=== PATIENT | male | born 1960 | race Caucasian/White ===

== ENCOUNTER → 2021-12-29 | Outpatient (CLI) | payer BC ==
--- NOTE | 2021-12-29 17:08 | KCIC ---
EXAM: Cervical spine, 4 views. HISTORY: Pain. COMPARISON: None. FINDINGS: 4 views of cervical spine are obtained. There are bulky bridging and partially bridging ant erior osteophytes at the upper and mid cervical levels. There is multilevel endplate remodeling. Ther e is no fracture. There is disc space narrowing at C6-C7. There is multilevel facet arthropathy. IMPRESSION: Multilevel degenerative change, described above. There may be a superimposed component of diffuse idiopathic skeletal hyperostosis. Electronically signed by: Marilu Rod MD (12/29/2021 5:06 PM) [id number]
== END ==
LOC: KCIC 15:37
PROVIDERS: ATTEND Family Medicine
DX: M47.812 Spondylosis without myelopathy or radiculopathy, cervical region (principal); M48.02 Spinal stenosis, cervical region; M48.8X2 Other specified spondylopathies, cervical region
CPT/HCPCS: 72040